=== PATIENT | female | born 1995 | race Caucasian/White ===

== ENCOUNTER → 2018-07-01 | Outpatient (CLI) | payer BC ==
[2017-08-25 03:13] VITALS: BMI 35.5
[~2018-07-01] MED LIST: HYDR-4225 PO; HYDR2TAB4 PO; IBUP800T37 PO; LEVO1IUD2 IY; LORA10CA3 PO; MONT10TA4 PO; PREN-176 PO; SERT-184 PO; VALA500T66 PO; [UNRECOGNIZED DRUG - OTHER]
== END ==
LOC: LAB 13:38
PROVIDERS: ATTEND Student in an Organized Health Care Education/Training Program
DX: R68.82 Decreased libido (principal); F32.9 Major depressive disorder, single episode, unspecified
CPT/HCPCS: 36415; 84443; 86376; 86800